=== PATIENT | female | born 1965 | race Caucasian/White ===

== ENCOUNTER 2017-02-25 13:08 | Emergency (ER) | payer OTHER ==
[~2017-02-25] VITALS: Ht 180.3 cm; Wt 83.9 kg
[~2017-02-25 13:08] MED LIST: AMBEREN; BUSPAR15 MG PO; CYCLOBENZAPRINE10 MG PO; ENDOCET 10-3251 EACH; FISH OIL 1,001000 M2; HYDROCODONE-AP1 EACH PO; LIORESAL 10 MG10 MG; LORAZEPAM 1 MG T1 M1 PO; METHADONE HCL5 MG PO; NEURONTIN 300300 M1 PO; NORCO 10-325 T1 EACH PO; OCUVITE TABLET1 EAC1; PROBIOTIC1 EAC2; TOPICAL ANALGESIC; VALIUM5 MG; VICODIN 5-5001 EACH PO; VITAMIN D-32000 UNIT PO
[2017-02-25] MEDS ORDERED: PHENERGAN 25 MG25 M1 PO (13:35)
[2017-02-25] MEDS ORDERED: NORCO 5-325 TA1 EACH PO (15:39)
[2017-02-25 16:00] VITALS: BP 120/71
== END 2017-02-25 16:01 | disposition home or self-care (01) ==
LOC: ER 13:08
DX: S83.92XA Sprain of unspecified site of left knee, initial encounter (principal); S93.402A Sprain of unspecified ligament of left ankle, initial encounter; S09.90XA Unspecified injury of head, initial encounter; Z88.0 Allergy status to penicillin; Z88.1 Allergy status to other antibiotic agents; W01.10XA Fall on same level from slipping, tripping and stumbling with subsequent striking against unspecified object, initial encounter; Y93.89 Activity, other specified; Y92.89 Other specified places as the place of occurrence of the external cause; Y99.8 Other external cause status

== ENCOUNTER → 2017-04-02 | Outpatient (CLI) | payer OTHER ==
[~2017-04-02] MED LIST changes: +NORCO 5-325 TA1 EACH PO; +PHENERGAN 25 MG25 M1 PO
== END ==
LOC: HYPER 04-01 15:54
DX: E11.622 Type 2 diabetes mellitus with other skin ulcer (principal); L89.321 Pressure ulcer of left buttock, stage 1; L89.311 Pressure ulcer of right buttock, stage 1; L98.411 Non-pressure chronic ulcer of buttock limited to breakdown of skin; G90.511 Complex regional pain syndrome I of right upper limb; Z86.718 Personal history of other venous thrombosis and embolism

== ENCOUNTER → 2017-10-21 | Outpatient (CLI) | payer OTHER | LOC: MRI 06:27 | DX: R41.3 Other amnesia (principal); F41.9 Anxiety disorder, unspecified; R26.9 Unspecified abnormalities of gait and mobility; Z87.820 Personal history of traumatic brain injury ==